=== PATIENT | female | born 1965 | race African-American/Black ===

== ENCOUNTER 2018-07-07 18:17 | Emergency (ER) | payer MEDICAID, SELFPAY ==
[2018-07-07 18:18] VITALS: BP 148/106; PULSE 96; RESP 20; TEMP 37.1; O2SAT 95; O2SAT 96; BMI 35.8
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
[2018-07-07] MEDS: Ibuprofen 600 MG Tablet PO (19:53)
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
[2018-07-07 21:16] VITALS: BP 136/88; PULSE 73; RESP 17; O2SAT 97
--- NOTE | 2018-07-07 21:17 | ED.RN ---
DISCHARGE INSTRUCTIONS GIVEN TO AND REVIEWED WITH PATIENT, PATIENT DENIES QUESTIONS OR CONCERNS AND VOICES UNDERSTANDING OF DISCHARGE INSTRUCTIONS.
== END 2018-07-07 21:38 | disposition home or self-care (01) ==
PROVIDERS: Emergency Provider Emergency Medicine
DX: S63.502A Unspecified sprain of left wrist, initial encounter (principal); S80.02XA Contusion of left knee, initial encounter; S09.90XA Unspecified injury of head, initial encounter; M54.5 Low back pain; M54.6 Pain in thoracic spine; V43.52XA Car driver injured in collision with other type car in traffic accident, initial encounter; Y93.89 Activity, other specified; Y92.410 Unspecified street and highway as the place of occurrence of the external cause
CPT/HCPCS: 70450; 72070; 72100; 73080; 73110; 73562; 99284